=== PATIENT | female | born 2005 | race Hispanic/Latino ===

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

== ENCOUNTER 2024-06-16 22:49 | Emergency (ER) | payer OTHER, SELFPAY ==
[2024-06-16] MEDS ORDERED: Metoclopramide HCl 10 MG TAB ONE (23:17)
== END 2024-06-16 23:59 | disposition home or self-care (01) ==
LOC: NAV ERS 22:49
DX: O21.9 Vomiting of pregnancy, unspecified (principal); Z3A.01 Less than 8 weeks gestation of pregnancy
CPT/HCPCS: 99284